=== PATIENT | female | born 1990 | race Caucasian/White ===

== ENCOUNTER 2022-09-18 04:40 | Outpatient (CLI) | payer BC, SELFPAY | END 2022-09-18 04:41 | disposition home or self-care (01) | LOC: AMB 08:10 | PROVIDERS: Visit Provider Family Medicine | DX: R06.09 Other forms of dyspnea (principal) | CPT/HCPCS: A0425; A0427 ==

== ENCOUNTER 2022-09-18 05:14 | Emergency (ER) | payer BC, SELFPAY ==
[2022-09-18 05:14] VITALS: BP 133/93; PULSE 97; RESP 22; TEMP 37.4; O2SAT 96; BMI 32.3
--- NOTE | 2022-09-18 05:24 | CRLHL7_ITS ---
For Patients: As a result of the Century Cures Act, medical imaging exams and procedure reports are released immediately into your electronic medical record. You may view this report before your referring provider. If you have questions, please contact your health care provider. INDICATION: Dyspnea. TECHNIQUE: Chest 1 views. COMPARISON: None. FINDINGS: Cardiovasculature and mediastinum: Heart size and vasculature are normal in caliber and appearance. Lungs and pleural spaces: Lungs are clear. No sign of infiltrate or mass. No sign of pleural effusion. No pneumothorax. Bones and soft tissues: No significant findings. IMPRESSION: No acute or significant findings. Dictated by Ryan Marlow MD @ 09/18/2022 6:06:12 AM (Electronically Signed)
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
[2022-09-18] MEDS: predniSONE 20 MG TABLET 40 MG PO (05:36)
[2022-09-18] MEDS: ALBUTEROL SULFATE 2.5 MG/3 ML VIAL.NEB NEB (05:36)
[2022-09-18 05:41] LABS: HCO3 VBG 28 mmol/L (21-28); PCO2 VBG 49 mmHG (40-50); PO2 VBG 28.8 mmHG (25-47)
[2022-09-18 06:01] LABS: Chloride* 108 mmol/L (96-114)
[2022-09-18 06:02] LABS: Potassium* 3.8 mmol/L (3.6-5.1); Sodium* 140 mmol/L (135-149)
[2022-09-18 06:04] LABS: Creatinine* 0.9 mg/dL (0.5-1.5); Est. Creatinine Clearance* 86.34; Estimated Glomerular Filt Rate 89 ml/min
[2022-09-18 06:05] LABS: Blood Urea Nitrogen* 14 mg/dL (5-24); Calcium* 9.1 mg/dL (8.4-10.6); Carbon Dioxide* 26 mmol/L (20-32); Glucose* 117 mg/dL (60-115)
[2022-09-18 06:15] LABS: NT Pro B Type NatriureticPept* < 20 pg/mL
--- NOTE | 2022-09-18 13:55 | ED.NURSE ---
Call from [facility] to verify Rx's. Paper copies sent, but not signed by MD. Pharmacist rohan w/ verbal confirmation to fill.
== END 2022-09-18 06:32 | disposition home or self-care (01) ==
PROVIDERS: Emergency Provider Family Medicine
DX: J45.901 Unspecified asthma with (acute) exacerbation (principal)
CPT/HCPCS: 36415; 71045; 80048; 82803; 83880; 94640; 99283; 99284; J7512

== ENCOUNTER 2022-10-10 05:27 | Emergency (ER) | payer BC, SELFPAY ==
[2022-10-10 05:40] VITALS: BP 142/88; PULSE 119; RESP 16; TEMP 36.6; O2SAT 92; BMI 34.3
[2022-10-10] MEDS: IPRAT-ALBUT 0.5-2.5 MG/3 ML NEB 1 NEB IH (05:40)
--- NOTE | 2022-10-10 06:13 | ED.NURSE ---
post neb pt states big improvement in breathing. pt able to speak full sentences, wheezing prior has resolved.
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
[2022-10-10 06:32] VITALS: PULSE 91; RESP 16; TEMP 36.6; O2SAT 96
== END 2022-10-10 06:35 | disposition home or self-care (01) ==
LOC: ED 06:17
PROVIDERS: Emergency Provider Family Medicine; PCP Family Medicine
DX: J45.901 Unspecified asthma with (acute) exacerbation (principal)
CPT/HCPCS: 94640; 99282; 99284

== ENCOUNTER 2022-10-11 11:23 | Outpatient (CLI) | payer BC, SELFPAY ==
[2022-10-11 21:40] LABS: Albumin* 4.6 g/dL (3.3-5.0)
[2022-10-11 21:41] LABS: Chloride* 104 mmol/L (96-114); Potassium* 3.9 mmol/L (3.6-5.1); Sodium* 138 mmol/L (135-149)
[2022-10-11 21:43] LABS: Alkaline Phosphatase* 72 U/L (40-150); Aspartate Amino Transferase* 37 U/L (12-35); Blood Urea Nitrogen* 11 mg/dL (5-24); Carbon Dioxide* 23 mmol/L (20-32); Cholesterol* 209 mg/dL (90-199); Creatinine* 0.8 mg/dL (0.5-1.5); Estimated Glomerular Filt Rate 102 ml/min
[2022-10-11 21:44] LABS: Alanine Aminotransferase* 28 U/L (4-35); Calcium* 9.1 mg/dL (8.4-10.6); Glucose* 161 mg/dL (60-115); HDL Cholesterol* 60 mg/dL (>=50); LDL Cholesterol Calculated 129 mg/dL (<100); Triglycerides* 101 mg/dL (40-149)
[2022-10-12 10:19] LABS: Cannabinoid Screen Urine POSITIVE (Negative); Cocaine Screen Urine Negative (Negative); Methamphetamines Screen Urine Negative (Negative); Opiate Screen Urine Negative (Negative); Phencyclidine Screen Urine Negative (Negative)
[2022-10-12 10:20] LABS: Amphetamine Screen Urine POSITIVE (Negative); Benzodiazepines Screen Urine POSITIVE (Negative); Methadone Screen Urine Negative (Negative); Tricyclic Antidepressant Urine POSITIVE (Negative)
[2022-10-12 10:21] LABS: Barbiturate Screen Urine Negative (Negative); Oxycodone Screen Urine POSITIVE (Negative)
== END 2022-10-11 11:24 | disposition home or self-care (01) ==
PROVIDERS: PCP Family Medicine; Visit Provider Family Medicine
DX: Z00.00 Encounter for general adult medical examination without abnormal findings (principal); R03.0 Elevated blood-pressure reading, without diagnosis of hypertension; E66.01 Morbid (severe) obesity due to excess calories; Z13.1 Encounter for screening for diabetes mellitus; Z13.6 Encounter for screening for cardiovascular disorders
CPT/HCPCS: 80053; 80061; 80306

== ENCOUNTER 2022-11-12 15:37 | Emergency (ER) | payer BC, SELFPAY ==
[2022-11-12] VITALS (23 sets, daily range): BP systolic 119–145; BP diastolic 86–112; PULSE 99–131; RESP 34; TEMP 37.1; O2SAT 67–99; BMI 34.3
[2022-11-12] MEDS: IPRAT-ALBUT 0.5-2.5 MG/3 ML NEB 1 NEB IH ×2 (15:50→15:55)
--- NOTE | 2022-11-12 15:54 | CRLHL7_ITS ---
For Patients: As a result of the Century Cures Act, medical imaging exams and procedure reports are released immediately into your electronic medical record. You may view this report before your referring provider. If you have questions, please contact your health care provider. HISTORY: Shortness of breath. TECHNIQUE: Portable frontal view the chest. COMPARISON: Chest x-ray 09/18/2022. FINDINGS: Lungs are clear. No pleural effusion or pneumothorax. Pulmonary vasculature and cardiomediastinal silhouette are normal. IMPRESSION: No cardiopulmonary abnormality. Dictated by Kenneth Ibrahim MD @ 11/12/2022 5:29:47 PM (Electronically Signed)
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
[2022-11-12 16:07] LABS: Basophils Percent Auto 0.3 % (0.0-3.0); Eosinophils Percent Auto 5.6 % (0.0-7.0); Hematocrit 48.8 % (33.0-51.0); Hemoglobin* 15.4 gm/dL (12.0-16.0); Immature Granulocytes Pct Auto 0.2 %; Lymphocytes Percent Auto 27.9 % (20-44); Mean Corpuscular HGB Conc 32 gm/dL (32-36); Mean Corpuscular Hemoglobin 28 pg (26-34); Mean Corpuscular Volume 88 fL (80-100); Monocytes Percent Auto 7.7 % (0.0-11.0); Neutrophils Percent Auto 58.3 % (42.0-72.0); Platelet Count* 343 K/uL (140-440); RDW Coefficient of Variation % 13.7 % (11.5-15.5); Red Blood Count 5.58 m/uL (4.00-5.20); White Blood Count* 11.99 K/uL (4.50-11.00)
[2022-11-12] MEDS: dexAMETHasone 10 MG/ML inj PO (16:09)
[2022-11-12 16:11] LABS: Slide Review Reflex No
[2022-11-12 16:25] LABS: Chloride* 104 mmol/L (96-114); Potassium* 4.4 mmol/L (3.6-5.1); Sodium* 140 mmol/L (135-149)
[2022-11-12 16:28] LABS: Blood Urea Nitrogen* 12 mg/dL (5-24); Carbon Dioxide* 28 mmol/L (20-32); Est. Creatinine Clearance* 71.03; Estimated Glomerular Filt Rate 78 ml/min; Glucose* 129 mg/dL (60-115)
[2022-11-12 16:29] LABS: Calcium* 9.2 mg/dL (8.4-10.6)
[2022-11-12 16:45] LABS: PCR FLU A Negative PCR FLU A (Negative); PCR FLU B Negative PCR FLU B (Negative); PCR RSV Negative PCR RSV (Negative)
[2022-11-12 16:49] LABS: SARS PCR* Negative SARS-CoV-2 (Negative)
== END 2022-11-12 18:02 | disposition home or self-care (01) ==
PROVIDERS: Emergency Provider Emergency Medicine Emergency Medical Services; PCP Family Medicine
DX: J45.901 Unspecified asthma with (acute) exacerbation (principal)
CPT/HCPCS: 36415; 71045; 80048; 85025; 87502; 87634; 87635; 94640; 94761; 99284; J1100

== ENCOUNTER 2022-12-02 01:37 | Outpatient (CLI) | payer BC, SELFPAY | END 2022-12-02 01:38 | disposition home or self-care (01) | LOC: AMB 12-04 09:59 | PROVIDERS: PCP Family Medicine; Visit Provider Internal Medicine | DX: J45.901 Unspecified asthma with (acute) exacerbation (principal) | CPT/HCPCS: A0425; A0427 ==

== ENCOUNTER 2022-12-02 02:11 | Emergency (ER) | payer BC, SELFPAY ==
[2022-12-02 02:14] VITALS: BP 128/78; PULSE 97; RESP 20; TEMP 36.1; O2SAT 91
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
[2022-12-02 02:32] VITALS: O2SAT 92
== END 2022-12-02 03:02 | disposition home or self-care (01) ==
LOC: ED 02:36
PROVIDERS: Emergency Provider Internal Medicine; PCP Family Medicine
DX: J45.909 Unspecified asthma, uncomplicated (principal)
CPT/HCPCS: 99283

== ENCOUNTER 2022-12-02 06:10 | Emergency (ER) | payer BC, SELFPAY ==
[2022-12-02 06:14] VITALS: BP 148/72; PULSE 93; RESP 24; TEMP 36.8; O2SAT 89
--- NOTE | 2022-12-02 06:15 | CRLHL7_ITS ---
For Patients: As a result of the Century Cures Act, medical imaging exams and procedure reports are released immediately into your electronic medical record. You may view this report before your referring provider. If you have questions, please contact your health care provider. INDICATION: Shortness of breath. TECHNIQUE: Chest 1 views. COMPARISON: 11/12/2022. FINDINGS: Cardiovasculature and mediastinum: Heart size and vasculature are normal in caliber and appearance. Lungs and pleural spaces: Lungs are clear. No sign of infiltrate or mass. No sign of pleural effusion. No pneumothorax. Bones and soft tissues: No significant findings. IMPRESSION: No acute findings and no significant changes from the prior exam. Dictated by Ryan Marlow MD @ 12/02/2022 6:59:45 AM (Electronically Signed)
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
[2022-12-02] MEDS: IPRAT-ALBUT 0.5-2.5 MG/3 ML NEB 1 NEB IH (06:19)
[2022-12-02] MEDS: ALBUTEROL INHALER 2 PUFF IH (06:56)
--- NOTE | 2022-12-02 07:01 | ED.NURSE ---
PT obtained MDI inhaler from with directions. DC given to pt, no further questions.
== END 2022-12-02 07:00 | disposition home or self-care (01) ==
PROVIDERS: Emergency Provider Internal Medicine; PCP Family Medicine
DX: J45.909 Unspecified asthma, uncomplicated (principal)
CPT/HCPCS: 71045; 94640; 99283; 99284; A9270

== ENCOUNTER 2023-10-03 13:02 | Outpatient (CLI) | payer BC, SELFPAY ==
--- OUTSIDE RECORDS SUMMARY | 2023-10-03 13:06 | XMS_ITS | Encounter Summary ---
Author Name Unknown Organization [facility] Address [address] [place] [id number] Care Team Providers Care Marine Rigger Name Role Phone No Ref-Primary, Physician Primary Care Provider Encounter Details Date Type Department Care Team (Latest Contact Info) Description 12/30/2022 Travel Social History Tobacco Use Types Packs/Day Years Used Date Smoking Tobacco: Former Cigarettes 1 1 Q uit: 04/09/2013 Smokeless Tobacco: Never Alcohol Use Standard Drinks/Week Comments Yes 2 (1 standard drink = 0.6 oz pur e alcohol) 3X / week AUDIT-C Answer Date Recorded Q1: How often do you have a drink containing alcohol? 4 or more times a week 05/23/2022 Q2: How many drinks containi ng alcohol do you have on a typical day when you are drinking? 3 or 4 Q3: How often do you have si x or more drinks on one occasion? Weekly 05/23/2022 Sex and Gender Information Value Date Recorded Sex Assigned at Not on file Gender Identity Not on file Sexual Orientation Not on file COVID-19 Exposure Response Date Recorded In the last 10 days, have yo u been in contact with someone who was confirmed or suspected to have Coronavirus/COVID-19? No / Unsure 12/30/2022 4:58 AM CDT documented as of this encounter Plan of Treatment Not on file documented as of this encounter Visit Diagnoses Not on filedocumented in this encounter Care Teams Marine Rigger Relationship Specialty Start Date End Date No Ref-Primary, Physician PCP - General 04/09/17 documented as of this encounter
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
--- OUTSIDE RECORDS SUMMARY | 2023-10-03 13:06 | XMS_ITS | Referral Summary ---
Author Name Unknown Organization [facility] Address [address] [place] [id number] Care Team Providers Care Resident Services Director Name Role Phone No Ref-Primary, Physician Primary Care Provider Allergies Active Allergy Reactions Criticality Noted Date Comments Amoxicillin Hives High 05/21/2022 Medications Medication Sig Dispensed Refills Start Date End Date Status DULoxetine (CYMBALTA) 60 MG capsuleIndicatio ns:PTSD (post-traumatic stress disorder) Take 2 capsules (120 mg) by mouth daily 60 capsule 0 2 Active FLUoxetine (PROZAC) 40 MG capsuleIndicatio ns:PTSD (post-traumatic stress disorder) Take 2 capsules (80 mg) by mouth daily 60 capsule 0 2 Active gabapentin (NEURONTIN) 800 MG tabletIndication s:PTSD (post-traumatic stress disorder),SUSHILA (generalized anxiety disorder) Take 1 tablet (800 mg) by mouth 3 times daily 90 tablet 0 2 Active hydrOXYzine (VISTARIL) 50 MG capsuleIndicatio ns:SUSHILA (generalized anxiety disorder) Take 1 capsule (50 mg) by mouth 4 times daily 120 capsule 0 2 Active prazosin (MINIPRESS) 1 MG capsuleIndicatio ns:PTSD (post-traumatic stress disorder) Take 3 capsules (3 mg) by mouth At Bedtime 90 capsule 0 2 Active QUEtiapine (SEROQUEL) 25 MG tabletIndication s:PTSD (post-traumatic stress disorder) Take 1 tablet (25 mg) by mouth 3 times daily 90 tablet 0 2 Active ARIPiprazole (ABILIFY) 10 MG tabletIndication s:PTSD (post-traumatic stress disorder),Severe recurrent major depression without psychotic features (H) Take 1 tablet (10 mg) by mouth daily 30 tablet 0 2 Active bisacodyl (DULCOLAX) 10 MG suppositoryIndic ations:Other constipation Place 1 suppository (10 mg) rectally daily as needed for constipation 30 suppository 0 2 Active busPIRone (BUSPAR) 10 MG tabletIndication s:PTSD (post-traumatic stress disorder),SUSHILA (generalized anxiety disorder) Take 1 tablet (10 mg) by mouth 3 times daily 90 tablet 0 2 Active hydrOXYzine (ATARAX) 50 MG tabletIndication s:PTSD (post-traumatic stress disorder),SUSHILA (generalized anxiety disorder) Take 1 tablet (50 mg) by mouth every 4 hours as needed for anxiety 90 tablet 0 2 Active levothyroxine (SYNTHROID/LEVOT HROID) 50 MCG tabletIndication s:Hypothyroidism , unspecified type Take 1 tablet (50 mcg) by mouth every morning (before breakfast) 30 tablet 0 2 Active Lidocaine (LIDOCARE) 4 % PatchIndications :Pain Place 2 patches onto the skin every 24 hours To prevent lidocaine toxicity, patient should be patch free for 12 hrs daily. 60 patch 0 2 Active melatonin 3 MG tabletIndication s:Other insomnia Take 1 tablet (3 mg) by mouth nightly as needed for sleep (if Trazodone does not help) 30 tablet 0 2 Active naltrexone (DEPADE/REVIA) 50 MG tabletIndication s:Alcohol use disorder, severe, dependence (H) Take 0.5 tab daily 15 tablet 0 2 Active nicotine (COMMIT) 2 MG lozengeIndicatio ns:Nicotine withdrawal Place 1 lozenge (2 mg) inside cheek every hour as needed for smoking cessation 108 lozenge 0 2 Active nicotine (NICODERM CQ) 21 MG/24HR 24 hr patchIndications :Nicotine withdrawal Place 1 patch onto the skin daily 30 patch 0 2 Active OLANZapine (ZYPREXA) 10 MG tabletIndication s:PTSD (post-traumatic stress disorder) Take 1 tablet (10 mg) by mouth 3 times daily as needed (associated with psychosis or xiomara) 45 tablet 0 2 Active polyethylene glycol (MIRALAX) 17 g packetIndication s:Other constipation Take 17 g by mouth daily as needed for constipation 30 each 0 2 Active polyethylene glycol (MIRALAX) 17 g packetIndication s:Other constipation Take 17 g by mouth daily 30 each 0 2 Active senna-docusate (SENOKOT-S/PERIC OLACE) 8.6-50 MG tabletIndication s:Other constipation Take 1-2 tablets by mouth 2 times daily 60 tablet 0 2 Active traZODone (DESYREL) 150 MG tabletIndication s:Other insomnia Take 1 tablet (150 mg) by mouth At Bedtime 30 tablet 0 2 Active albuterol (PROAIR HFA/PROVENTIL HFA/VENTOLIN HFA) 108 (90 Base) MCG/ACT inhaler Inhale 2 puffs into the lungs every 4 hours as needed for shortness of breath, wheezing or cough 18 g 0 3 Active propranolol (INDERAL) 10 MG tablet Take 10 mg by mouth 2 times daily 0 06/06/20 22 Discontinued topiramate (TOPAMAX) 25 MG tablet Take 25-50 mg by mouth daily as needed (anxiety) 0 06/06/20 22 Discontinued Active Problems Problem Noted Date Diagnosed Date SUSHILA (generalized anxiety disorder) 05/29/2022 PTSD (post-traumatic stress disorder) 05/29/2022 Nicotine use disorder 05/29/2022 Alcohol use disorder, severe, dependence 022 Severe recurrent major depre ssion without psychotic features 05/24/2022 Suicidal ideation 05/23/2022 Overdose 05/17/2022 Drug overdose 05/17/2022 Suicide attempt 01/02/2022 Anxiety 01/16/2018 Intentional drug overdose 04/09/2017 Social History Tobacco Use Types Packs/Day Years [...] more drinks on one occasion? Weekly 05/23/2022 Adolescent Education Answer Date Record ed Getting School Help Needed Not on file 05/25 Sex and Gender Information Value Date Recorded Sex Assigned at Not on file Gender Identity Not on file Sexual Orientation Not on file Last Filed Vital Signs Vital Sign Reading Time Taken Comments Blood Pressure 134/106 12/30/2022 6:00 AM CDT Pulse 101 12/30/2022 6:02 AM CDT Temperature 36.7 ??C (98 ??F) 12/30/2022 5:00 AM CDT Respiratory Rate 28 12/30/2022 5:00 AM CDT Oxygen Saturation 96% 12/30/2022 6:02 AM CDT Inhaled Oxygen Concentration - - Weight 90.7 kg (200 lb) 12/30/2022 5:00 AM CDT Height 162.6 cm (5' 4) 12/30/2022 5:00 AM CDT Body Mass Index 34.33 12/30/2022 5:00 AM CDT Plan of Treatment Not on file Advance Directives For more information, please contact: [phone] Latest Code Status on File Code Status Date Activated Date Inactivated Comments Full Code 05/23/2022 6:00 PM 06/09/2022 2:04 PM All b asic and advanced life-sustaining interventions are performed as appropriate Question Answer Comments Code status determined by: Unable to discuss and no AD/POLST on file; continue PREVIOUSLY ORDERED code status Code Status History Code Status Date Activated Date Inactivated Comments Full Code 05/23/2022 5:58 PM 05/23/2022 6:00 PM All b asic and advanced life-sustaining interventions are performed as appropriate Question Answer Comments Code status determined by: Unable to discuss and no AD/POLST on file; continue PREVIOUSLY ORDERED code status Full Code 05/17/2022 9:03 PM 05/23/2022 5:40 PM All b asic and advanced life-sustaining interventions are performed as appropriate Question Answer Comments Code status determined by: Unable to discuss and no AD/POLST on file; continue PREVIOUSLY ORDERED code status Full Code 01/02/2022 9:52 PM 01/05/2022 3:38 PM All bas ic and advanced life-sustaining interventions are performed as appropriate Question Answer Comments Code status determined by: Unable to discuss and no AD/POLST on file; continue PREVIOUSLY ORDERED code status Full Code 04/11/2017 12:36 PM 01/01/2022 7:21 AM Care Teams Resident Services Director Relationship Specialty Start Date End Date No Ref-Primary, Physician PCP - General 04/09/17
--- OUTSIDE RECORDS SUMMARY | 2023-10-03 13:06 | XMS_ITS | Encounter Summary ---
Author Name Unknown Organization [facility] Address [address] [place] [id number] Care Team Providers Care Police Radio Dispatcher Name Role Phone No Ref-Primary, Physician Primary Care Provider Encounter Details Date Type Department Care Team ([facility] Contact Info) Description 01/11/2023 5:00 PM CDT Lab [facility] [address] [place] [address] Severe persistent asthma, uncomplicated (Primary Dx) Social History Tobacco Use Types Packs/Day Years [...] suspected to have Coronavirus/COVID-19? No / Unsure 01/11/2023 12:41 PM CDT documented as of this encounter Plan of Treatment Not on file documented as of this encounter Procedures Procedure Name Priority Date/Time Associated Diagnosis Comments CBC WITH PLATELETS AND DIFFERENTIAL Routine 01/11/2023 12:52 PM CDT Severe persistent asthma, uncomplicated MYELOPEROXIDASE AND PROTEINASE 3 PANEL Routine 01/11/2023 12:52 PM CDT Severe persistent asthma, uncomplicated CBC WITH PLATELETS & DIFFERENTIAL Routine 01/11/2023 12:52 PM CDT Severe persistent asthma, uncomplicated IGE Routine 01/11/2023 12:52 PM CDT Severe persistent asthma, uncomplicated documented in this encounter Results * CBC with platelets and differential (01/11/2023 12:52 PM CDT) [facility] WBC Count 7.4 4.0 - 11.0 10e3/uL 01/11/2023 12:54 PM CDT [facility] RBC Count 4.94 3.80 - 5.20 10e6/uL 01/11/2023 12:54 PM CDT [facility] Hemoglobin 13.9 11.7 - 15.7 g/dL 01/11/2023 12:54 PM CDT [facility] Hematocrit 43.0 35.0 - 47.0 % 01/11/2023 12:54 PM CDT [facility] MCV 87 78 - 100 fL 01/11/2023 12:54 PM CDT [facility] MCH 28.1 26.5 - 33.0 pg 01/11/2023 12:54 PM CDT [facility] MCHC 32.3 31.5 - 36.5 g/dL 01/11/2023 12:54 PM CDT [facility] RDW 14.8 10.0 - 15.0 % 01/11/2023 12:54 PM CDT [facility] Platelet Count 260 150 - 450 10e3/uL 01/11/2023 12:54 PM CDT [facility] % Neutrophils 56 % 01/11/2023 12:54 PM CDT [facility] % Lymphocytes 31 % 01/11/2023 12:54 PM CDT [facility] % Monocytes 6 % 01/11/2023 12:54 PM CDT [facility] % Eosinophils 6 % 01/11/2023 12:54 PM CDT [facility] % Basophils 1 % 01/11/2023 12:54 PM CDT [facility] % Immature Granulocytes 0 % 01/11/2023 12:54 PM CDT [facility] Absolute Neutrophils 4.2 1.6 - 8.3 10e3/uL 01/11/2023 12:54 PM CDT [facility] Absolute Lymphocytes 2.3 0.8 - 5.3 10e3/uL 01/11/2023 12:54 PM CDT [facility] Absolute Monocytes 0.5 0.0 - 1.3 10e3/uL 01/11/2023 12:54 PM CDT [facility] Absolute Eosinophils 0.5 0.0 - 0.7 10e3/uL 01/11/2023 12:54 PM CDT [facility] Absolute Basophils 0.1 0.0 - 0.2 10e3/uL 01/11/2023 12:54 PM CDT [facility] Absolute Immature Granulocytes 0.0 <=0.4 10e3/uL 01/11/2023 12:54 PM CDT [facility] Blood STRUCTURE OF RIGHT UPPER LIMB / Unknown Venipuncture / Unknown 01/11/2023 12:52 PM CDT 01/11/2023 12:52 PM CDT Mannie Beasley MD LAB - BLOOD ORDERABL ES [facility] [address], [address] [place] [address], [facility] [phone] * (ABNORMAL) IgE (01/11/2023 12:52 PM CDT) Immunoglobulin E 218(H) 0 - 114 kU/L 01/19/2023 10:03 AM CDT [facility] Blood STRUCTURE OF RIGHT UPPER LIMB / Unknown Venipuncture / Unknown 01/11/2023 12:52 PM CDT 01/11/2023 12:52 PM CDT Mannie Beasley MD LAB - BLOOD ORDERABL ES [facility] [address] [facility] [address], [address] [place] [address] * Myeloperoxidase and Proteinase 3 Panel (01/11/2023 12:52 PM CDT) MPO Denise IgG Instrument Value 0.3 <3.5 U/mL 01/12/2023 1:54 PM CDT [facility]EN DO Myeloperoxidase Antibody IgG Negative Negative 01/12/2023 1:54 PM CDT [facility] Proteinase 3 Denise IgG Instrument Value <1.0 <2.0 U/mL 01/12/2023 1:54 PM CDT [facility] DO Proteinase 3 Antibody IgG Negative Negative 01/12/2023 1:54 PM CDT SPECIALTY CORE/PROT/EN DO Blood STRUCTURE OF RIGHT UPPER LIMB / Unknown Venipuncture / Unknown 01/11/2023 12:52 PM CDT 01/11/2023 12:52 PM CDT Mannie Beasley MD LAB - BLOOD ORDERABL ES [facility]Endo [address] [facility] [address] [facility], [address] [place] [address] documented in this encounter Visit Diagnoses Diagnosis Severe persistent asthma, uncomplicated (H28)- Primary Unspecified asthma documented in this encounter Care Teams Police Radio Dispatcher Relationship Specialty Start Date End Date No Ref-Primary, Physician PCP - General 04/09/17 documented as of this encounter
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
--- OUTSIDE RECORDS SUMMARY | 2023-10-03 13:06 | XMS_ITS | Encounter Summary ---
Author Name Unknown Organization [facility] Address [address] [place] [id number] Care Team Providers Care Bulk Sealer Operator Name Role Phone No Ref-Primary, Physician Primary Care Provider Encounter Details Date Type Department Care Team (Latest Contact Info) Description 01/11/2023 Travel Social History Tobacco Use Types Packs/Day [...] on filedocumented in this encounter Care Teams Bulk Sealer Operator Relationship Specialty Start Date End Date No Ref-Primary, Physician PCP - General 04/09/17 documented as of this encounter
--- OUTSIDE RECORDS SUMMARY | 2023-10-03 13:06 | XMS_ITS | Encounter Summary ---
Author Name Unknown Organization [facility] Address [address] [place] [id number] Care Team Providers Care Engine Buildup Mechanic Name Role Phone No Ref-Primary, Physician Primary Care Provider Reason for Visit * Reason Comments Shortness of Breath Encounter Details Date Type Department Care Team ([facility] st Contact Info) Description 12/30/2022 5:01 AM CDT - 12/30/2022 7:04 AM CDT [facility] Emergency Dept [address] [place] [address] Atif Chand MD EMERGENCY PHYSICIAN [facility] [address] [place] [address] [phone] Exacerbation of asthma, unspecified asthma severity, unspecified whether persistent Discharge Disposition: Home or Self Care Social History Tobacco Use Types Packs/Day Years [...] Recorded In the last 10 days, have zulma u been in contact with someone who was confirmed or suspected to have Coronavirus/COVID-19? No / Unsure 12/30/2022 4:58 AM CDT documented as of this encounter Last Filed Vital Signs Vital Sign Reading [...] Mass Index 34.33 12/30/2022 5:00 AM CDT documented in this encounter Discharge Instructions * Attachments The following attachments cannot be sent through Care Everywhere. * Asthma, Acute (Adult) (Tristanian) documented in this encounter Medications at Time of Discharge Medication Sig Dispensed Refills Start Date End Date albuterol (PROAIR HFA/PROVENTIL HFA/VENTOLIN HFA) 108 (90 Base) MCG/ACT inhaler Inhale 2 puffs into the lungs every 4 hours as needed for shortness of breath, wheezing or cough 18 g 0 12/30/2022 ARIPiprazole (ABILIFY) 10 MG tabletIndications:P TSD (post-traumatic stress disorder),Severe recurrent major depression without psychotic features (H) Take 1 tablet (10 mg) by mouth daily 30 tablet 0 06/07/2022 bisacodyl (DULCOLAX) 10 MG suppositoryIndicati ons:Other constipation Place 1 suppository (10 mg) rectally daily as needed for constipation 30 suppository 0 06/06/2022 busPIRone (BUSPAR) 10 MG tabletIndications:P TSD (post-traumatic stress disorder),SUSHILA (generalized anxiety disorder) Take 1 tablet (10 mg) by mouth 3 times daily 90 tablet 0 06/06/2022 DULoxetine (CYMBALTA) 60 MG capsuleIndications: PTSD (post-traumatic stress disorder) Take 2 capsules (120 mg) by mouth daily 60 capsule 0 06/06/2022 FLUoxetine (PROZAC) 40 MG capsuleIndications: PTSD (post-traumatic stress disorder) Take 2 capsules (80 mg) by mouth daily 60 capsule 0 06/06/2022 gabapentin (NEURONTIN) 800 MG tabletIndications:P TSD (post-traumatic stress disorder),SUSHILA (generalized anxiety disorder) Take 1 tablet (800 mg) by mouth 3 times daily 90 tablet 0 06/06/2022 hydrOXYzine (ATARAX) 50 MG tabletIndications:P TSD (post-traumatic stress disorder),SUSHILA (generalized anxiety disorder) Take 1 tablet (50 mg) by mouth every 4 hours as needed for anxiety 90 tablet 0 06/06/2022 hydrOXYzine (VISTARIL) 50 MG capsuleIndications: SUSHILA (generalized anxiety disorder) Take 1 capsule (50 mg) by mouth 4 times daily 120 capsule 0 06/06/2022 levothyroxine (SYNTHROID/LEVOTHRO ID) 50 MCG tabletIndications:H ypothyroidism, unspecified type Take 1 tablet (50 mcg) by mouth every morning (before breakfast) 30 tablet 0 06/07/2022 Lidocaine (LIDOCARE) 4 % PatchIndications:Pa in Place 2 patches onto the skin every 24 hours To prevent lidocaine toxicity, patient should be patch free for 12 hrs daily. 60 patch 0 06/06/2022 melatonin 3 MG tabletIndications:O ther insomnia Take 1 tablet (3 mg) by mouth nightly as needed for sleep (if Trazodone does not help) 30 tablet 0 06/06/2022 naltrexone (DEPADE/REVIA) 50 MG tabletIndications:A lcohol use disorder, severe, dependence (H) Take 0.5 tab daily 15 tablet 0 06/06/2022 nicotine (COMMIT) 2 MG lozengeIndications: Nicotine withdrawal Place 1 lozenge (2 mg) inside cheek every hour as needed for smoking cessation 108 lozenge 0 06/06/2022 nicotine (NICODERM CQ) 21 MG/24HR 24 hr patchIndications:Ni cotine withdrawal Place 1 patch onto the skin daily 30 patch 0 06/07/2022 OLANZapine (ZYPREXA) 10 MG tabletIndications:P TSD (post-traumatic stress disorder) Take 1 tablet (10 mg) by mouth 3 times daily as needed (associated with psychosis or xiomara) 45 tablet 0 06/06/2022 polyethylene glycol (MIRALAX) 17 g packetIndications:O ther constipation Take 17 g by mouth daily as needed for constipation 30 each 0 06/06/2022 polyethylene glycol (MIRALAX) 17 g packetIndications:O ther constipation Take 17 g by mouth daily 30 each 0 06/07/2022 prazosin (MINIPRESS) 1 MG capsuleIndications: PTSD (post-traumatic stress disorder) Take 3 capsules (3 mg) by mouth At Bedtime 90 capsule 0 06/06/2022 QUEtiapine (SEROQUEL) 25 MG tabletIndications:P TSD (post-traumatic stress disorder) Take 1 tablet (25 mg) by mouth 3 times daily 90 tablet 0 06/06/2022 senna-docusate (SENOKOT-S/PERICOLA CE) 8.6-50 MG tabletIndications:O ther constipation Take 1-2 tablets by mouth 2 times daily 60 tablet 0 06/06/2022 traZODone (DESYREL) 150 MG tabletIndications:O ther insomnia Take 1 tablet (150 mg) by mouth At Bedtime 30 tablet 0 06/06/2022 azithromycin (ZITHROMAX Z-PAMELA) 250 MG tablet Two tablets on the first day, then one tablet daily for the next 4 days 6 tablet 0 12/30/2022 01/04/2023 documented as of this encounter ED Notes * Charleen Dolan RN - 12/30/2022 5:00 AM CDT Pt has had shortness of breath for months. Pt reports worsening short of breath since 0200. Pt is out of her inhaler. * Atif Chand MD - 12/30/2022 4:58 AM CDT History Chief Complaint: Shortness of Breath EDMAR Tillman is a 32 year old female with a history of asthma who presents with shortness of breath. Her accompanying family member and herself explain that she has a history of asthma, however itwas quite mild until recently when she began needing more inhaler treatments in the past few months. It has become severe enough that she states using her inhaler daily since September. She ran out of her inhaler yesterday morning and approximately three hours prior to my examination, began feeling increasingly short of breath. She also reports a cough. She denies any rhinorrhea or other cold symptoms. Of note, she finished a steroid treatment for her breathing difficulty approximately one month ago and was a smoker for about a decade, quitting in June,. Independent Historian: Family member at bedside confirms the above history. Review of External Notes: None ROS: Review of Systems HENT: Negative for rhinorrhea. Respiratory: Positive for cough and shortness of breath. All other systems reviewed and are negative. Allergies: Amoxicillin Medications: Abilify Dulcolax Buspar Cymbalta Prozac Neurontin Atarax Vistaril Synthroid/Levothroid Depade/Revia Zyprexa Minipress Seroquel Senokot-S/Pericolace Desyrel Adderall Inderal Remeron Past Medical History: Anxiety Depressive disorder Asthma PTSD Past Surgical History: History reviewed. No past surgical history. Family History: History reviewed. No pertinent family history. Social History: Presents to the ED with a family member. PCP: No Ref-Primary, Physician Physical Exam Patient Vitals for the past 24 hrs: BP Temp Temp src Pulse Resp SpO2 Height Weight 12/30/22 0602 -- -- -- 101 -- 96 % -- -- 12/30/22 0601 -- -- -- 101 -- 93 % -- -- 12/30/22 0600 (!) 134/106 -- -- 87 -- 94 % -- -- 12/30/22 0550 (!) 144/94 -- -- 108 -- 93 % -- -- 12/30/22 0540 -- -- -- 108 -- 93 % -- -- 12/30/22 0525 (!) 140/105 -- -- 102 -- 99 % -- -- 12/30/22 0515 (!) 144/111 -- -- 105 -- 97 % -- -- 12/30/22 0511 -- -- -- 115 -- 98 % -- -- 12/30/22 0506 -- -- -- -- -- (!) 89 % -- -- 12/30/22 0504 (!) 152/116 -- -- (!) 139 -- -- -- -- 12/30/22 0500 -- 98 ??F (36.7 ??C) Temporal (!) 133 28 92 % 1.626 m (5' 4) 90.7 kg (200 lb) Physical Exam Constitutional: Patient is wheezing audible. Slight resp distress. Head: Atraumatic. Mouth/Throat: Oropharynx is clear and moist. No oropharyngeal exudate. Eyes: Conjunctivae are normal. No scleral icterus. Neck: Normal range of motion. Neck supple. Cardiovascular: Normal rate, regular rhythm, normal heart sounds and intact distal perfusion. Pulmonary/Chest: Tachypneic respiratory rate. Diffuse wheezing with rhonchal, vesicular breath sounds equally. Abdominal: Soft. Bowel sounds are normal. No distension. No tenderness. No rebound or guarding. Musculoskeletal: Normal range of motion. No edema or tenderness. Neurological: Alert and orientated to person, place, and time. No observable focal neuro deficit Skin: Warm and dry. No rash noted. Not diaphoretic. Emergency Department Course ECG ECG taken at 0508, ECG read at 0514 Sinus tachycardia Otherwise normal ECG Rate 122 bpm. WI interval 140 ms. QRS duration 76 ms. QT/QTc 304/433 ms. P-R-T axes 70 79 63. Procedures None Emergency Department Course & Assessments: Interventions: Medications ipratropium - albuterol 0.5 mg/2.5 mg/3 mL (DUONEB) 0.5-2.5 (3) MG/3ML neb solution (3 mLs $Given 12/30/22 0507) ipratropium - albuterol 0.5 mg/2.5 mg/3 mL (DUONEB) neb solution 3 mL (3 mLs Nebulization $Given 12/30/22 0513) dexamethasone PF (DECADRON) injection 10 mg (10 mg Intravenous $Given 12/30/22 0516) azithromycin (ZITHROMAX) tablet 500 mg (500 mg Oral $Given 12/30/22 0521) ipratropium - albuterol 0.5 mg/2.5 mg/3 mL (DUONEB) neb solution 3 mL (3 mLs Nebulization $Given 12/30/22 1128) Assessments: 0505 I obtained history and examined the patient as noted above. 0638 I rechecked the patient and explained findings. I believe that they are safe for discharge at this time. Independent Interpretation (X-rays, CTs, rhythm strip): None Consultations/Discussion of Management or Tests: None Social Determinants of Health affecting care: None Disposition: The patient was discharged to home. Impression & Plan [facility] Diagnoses: None Medical Decision Making: Mary Tillman is a 32 year old female who presents for evaluation of shortness of breath and wheezing, consistent with known reactive airway disease. Signs and symptoms are consistent with asthma exacerbation. A broad differential was considered including inhaled foreign body, asthma, pneumonia, bronchitis, COPD, pneumothorax, cardiac equivalent, viral induced wheezing, allergic phenomena, etc.The patient was treated with DuoNebs and steroids and feels improved after interventions here in ED. The patient has not had multiple recent ED visits for these symptoms, has not had recent steroid burst, no recent asthma related admission, and has no history of intubation for asthma. No indication for hospitalization at this time including no hypoxia, no marked increase in respiratory rate, minimal to no retractions. Supportive outpatient management is indicated, medications for discharge notedabove including abx since smoking hx. Close follow up with primary care physician. Return if increased wheezing, progressive shortness of breath, develops fever greater than 102. All questions and concerns were answered. The patient was discharged home and recommended to followup with her primary physician and return with any new or worsening symptoms. Critical Care time: was 0 minutes for this patient excluding procedures. Diagnosis: ICD-10-CM 1. Exacerbation of asthma, unspecified asthma severity, unspecified whether persistent J45.901 Discharge Medications: New Prescriptions ALBUTEROL (PROAIR HFA/PROVENTIL HFA/VENTOLIN HFA) 108 (90 BASE) MCG/ACT INHALER Inhale 2 puffs intothe lungs every 4 hours as needed for shortness of breath, wheezing or cough AZITHROMYCIN (ZITHROMAX Z-PAMELA) 250 MG TABLET Two tablets on the first day, then one tablet daily for the next 4 days Scribe Disclosure: I, Hernandez Kim, am serving as a scribe at 5:19 AM on 12/30/2022 to document services personally performed by Atif Chand MD based on my observations and the provider's statements to me. 12/30/2022 Atif Chand MD Stevens, Andrew C, MD 12/30/22 0700 documented in this encounter Plan of Treatment Not on file documented as of this encounter Procedures Procedure Name Priority Date/Time Associated Diagnosis Comments EKG 12-LEAD, TRACING ONLY STAT 12/30/2022 5:08 AM CDT documented in this encounter Results * EKG 12 lead (12/30/2022 5:08 AM CDT) Systolic Blood Pressure mmHg RADIOLOGY RESULTS Diastolic Blood Pressure mmHg RADIOLOGY RESULTS Ventricular Rate 122 BPM RAD IOLOGY RESULTS Atrial Rate 122 BPM RADIOLOG Y RESULTS WI Interval 140 ms RADIOLOG Y RESULTS QRS Duration 76 ms RADIOLO GY RESULTS QT 304 ms RADIOLOGY RESULTS QTc 433 ms RADIOLOGY RESULTS P [place] 70 degrees RADIOLOGY RESULTS R AXIS 79 degrees RADIOLOGY RESULTS T [place] 63 degrees RADIOLOGY RESULTS Interpretation ECG Sinus tachycardia Otherwise normal ECG When compared with ECG of 19-MAY-2022 09:33, Vent. rate has increased BY ??40 BPM T wave amplitude has increased in Anterior leads Confirmed by - EMERGENCY ROOM, PHYSICIAN ([id number]), art editor VINH BRICE ([id number]) on 01/01/2023 7:17:22 AM RADIOLOGY RESULTS 12/30/2022 5:08 AM CDT 01/01/2023 7:17 AM CDT Atif Chand MD ECG ORDERABLES RADIOLOGY RESULTS documented in this encounter Visit Diagnoses Diagnosis Exacerbation of asthma, unspecified asthma severity, unspecified whether persistent documented in this encounter Administered Medications Inactive Administered Medications - up to 3 most recent administrations Medication Order MAR Action Action Date Dose Rate Site azithromycin (ZITHROMAX) tablet 500 mg STAT, 500 mg, Oral, ONCE, On 12/30/22 at 0515, For 1 dose, Indications: Community Acquired Pneumonia $Given 12/30/2022 5:21 AM CDT 500 mg dexamethasone PF (DECADRON) injection 10 mg 10 mg, Intravenous, ONCE, Administer over 1 Minutes, On 12/30/22 at 0515, For 1 dose $Given 12/30/2022 5:16 AM CDT 10 mg ipratropium - albuterol 0.5 mg/2.5 mg/3 mL (DUONEB) 0.5-2.5 (3) MG/3ML neb solution Starting on 12/30/22 at 0504, For 1 dose, Nona Soto: cabinet override $Given 12/30/2022 5:07 AM CDT 3 mLs ipratropium - albuterol 0.5 mg/2.5 mg/3 mL (DUONEB) neb solution 3 mL 3 mL, Nebulization, ONCE, On 12/30/22 at 0515, For 1 dose, For shortness of breath $Given 12/30/2022 5:13 AM CDT 3 mLs ipratropium - albuterol 0.5 mg/2.5 mg/3 mL (DUONEB) neb solution 3 mL 3 mL, Nebulization, ONCE, On 12/30/22 at 0520, For 1 dose, For shortness of breath $Given 12/30/2022 5:17 AM CDT 3 mLs documented in this encounter Active and Recently Administered Medications Times are shown in CDT. Scheduled Medication Order 12/28/2022 12/29/2022 12/30/2022 azithromycin (ZITHROMAX) tablet 500 mg (COMPLETED) STAT, 500 mg, Oral, ONCE, On 12/30/22 at 0515, For 1 dose, Indications: Community Acquired Pneumonia 0521 ($Given - Provi ronny: Jennifer Barbour RN) dexamethasone PF (DECADRON) injection 10 mg (COMPLETED) 10 mg, Intravenous, ONCE, Administer over 1 Minutes, On 12/30/22 at 0515, For 1 dose 0516 ($Given - Provi ronny: Jennifer Barbour RN) ipratropium - albuterol 0.5 mg/2.5 mg/3 mL (DUONEB) neb solution 3 mL (COMPLETED) 3 mL, Nebulization, ONCE, On 12/30/22 at 0515, For 1 dose, For shortness of breath 0513 ($Given - Provi ronny: Jennifer Barbour RN) ipratropium - albuterol 0.5 mg/2.5 mg/3 mL (DUONEB) neb solution 3 mL (COMPLETED) 3 mL, Nebulization, ONCE, On 12/30/22 at 0520, For 1 dose, For shortness of breath 0517 ($Given - Provi ronny: Jennifer Barbour RN) No Frequency Medication Order 12/28/2022 12/29/2022 12/30/2022 ipratropium - albuterol 0.5 mg/2.5 mg/3 mL (DUONEB) 0.5-2.5 (3) MG/3ML neb solution (COMPLETED) Starting on 12/30/22 at 0504, For 1 dose, Nona Soto: cabinet override 0507 ($Given - Provi ronny: Nona Soto RN) documented in this encounter Care Teams Engine Buildup Mechanic Relationship Specialty Start Date End Date No Ref-Primary, Physician PCP - General 04/09/17 documented as of this encounter
--- OUTSIDE RECORDS SUMMARY | 2023-10-03 13:06 | XMS_ITS | Clinical Summary ---
Author Name Unknown Organization [facility] Address [address] [place] [id number] Care Team Providers Care Sewing Machine Operator Zipper Name Role Phone No Ref-Primary, Physician Primary [...] 12/30/2022 5:00 AM CDT Plan of Treatment Health Maintenance Due Date Last Done Comments ADVANCE CARE PLANNING 1992 ANNUAL REVIEW OF HM ORDERS 1992 ASTHMA ACTION PLAN 1992 ASTHMA CONTROL TEST 1992 DEPRESSION ACTION PLAN 1992 PHQ-9 1992 YEARLY PREVENTIVE VISIT 1992 IPV IMMUNIZATION (4 of 4 - 4-dose series) 1996 10/19/1994, 03/15/1993, 01/11/1993 Pneumococcal Vaccine: Pediatrics (0 to 5 Years) and At-Risk Patients (6 to 64 Years) (1 of 2 - PCV) 1998 HIV SCREENING 11/06/2007 HEPATITIS C SCREENING 2010 PAP 2013 COVID-19 Vaccine ( season) 2023 04/15/2021, 03/25/2021 INFLUENZA VACCINE (#1) 2023 07/09/2014 TSH W/FREE T4 REFLEX 07/19/2023 07/19/2022, 05/29/2022, 05/29/2022, Additional history exists DTAP/TDAP/TD IMMUNIZATION (7 - Td or Tdap) 04/14/2029 04/14/2019, 07/21/2004, 05/11/1995, Additional history exists HEPATITIS B IMMUNIZATION Completed 995, 01/11/1993, 1992 HPV IMMUNIZATION Aged Out No longer e ligible based on patient's age to complete this topic MENINGITIS IMMUNIZATION Aged Out No l onger eligible based on patient's age to complete this topic RSV MONOCLONAL ANTIBODY Aged Out No l onger eligible based on patient's age to complete this topic Advance Directives For more information, please contact: [phone] Latest Code Status on File Code Status [...] 12:36 PM 01/01/2022 7:21 AM Care Teams Sewing Machine Operator Zipper Relationship Specialty Start Date End Date No Ref-Primary, Physician PCP - General 04/09/17
--- OUTSIDE RECORDS SUMMARY | 2023-10-03 13:06 | XMS_ITS | Encounter Summary ---
Author Name Unknown Organization [facility] Address [address] [place] [address] Care Team Providers Care Group Exercise Instructor Name Role Phone No Primary/Referring, Jaky Primary Care Provider Unavailable Encounter Details Date Type Department Care Team Description 04/14/2019 Consent for Procedure/Treatment [facility] Department INFORMED CONSENT RECORD Social History Tobacco Use Types Packs/Day Years Used Date Smoking Tobacco: Never Assessed Sex and Gender Information Value Date Recorded Sex Assigned at Not on file Gender Identity Not on file Sexual Orientation Not on file documented as of this encounter Plan of Treatment Not on file documented as of this encounter Visit Diagnoses Not on filedocumented in this encounter Care Teams Group Exercise Instructor Relationship Specialty Start Date End Date No Primary/ReferringJaky PCP - General 04/14/19 documented as of this encounter
== END 2023-10-03 13:03 | disposition home or self-care (01) ==
PROVIDERS: PCP Family Medicine; Visit Provider Family Medicine
DX: Z13.220 Encounter for screening for lipoid disorders (principal); E66.01 Morbid (severe) obesity due to excess calories; Z68.42 Body mass index [BMI] 45.0-49.9, adult
CPT/HCPCS: 80053; 80061; 84443

== ENCOUNTER 2024-10-15 14:21 | Outpatient (CLI) | payer MEDICARE, SELFPAY | END 2024-10-15 14:22 | disposition home or self-care (01) | PROVIDERS: PCP Physician Assistant Medical; Visit Provider Physician Assistant Medical | DX: E03.9 Hypothyroidism, unspecified (principal); Z13.228 Encounter for screening for other metabolic disorders; Z13.220 Encounter for screening for lipoid disorders | CPT/HCPCS: 80053; 80061; 84443 ==

== ENCOUNTER 2025-03-18 14:32 | Outpatient (CLI) | payer MEDICARE, SELFPAY | END 2025-03-18 14:33 | disposition home or self-care (01) | LOC: NFLDREF 03-20 03:08 | PROVIDERS: PCP Physician Assistant Medical; Referring Provider Physician Assistant Medical; Visit Provider Physician Assistant Medical | DX: E03.9 Hypothyroidism, unspecified (principal); D50.9 Iron deficiency anemia, unspecified; Z11.3 Encounter for screening for infections with a predominantly sexual mode of transmission; Z11.4 Encounter for screening for human immunodeficiency virus [HIV]; Z11.59 Encounter for screening for other viral diseases | CPT/HCPCS: 82728; 84443; 86592; 86703; 86706; 86803; 87340; 87491; 87591 ==